=== PATIENT | male | born 1985 | race Caucasian/White ===

== ENCOUNTER 2020-11-24 09:20 | Inpatient (IN) | payer OTHER ==
[2020-11-24 10:28] VITALS: BMI 18.9
[2020-11-24] MEDS ORDERED: ACETAMINOPHEN 325 MG TABLET (FP) PO PRN ×2 (10:34)
[2020-11-24] MEDS ORDERED: BISMUTH SUBSALICYLATE 524 MG/30 ML PO PRN (10:34)
[2020-11-24] MEDS ORDERED: NICOTINE 10 MG CARTRIDGE (INHALER) IH PRN (10:34)
[2020-11-24] MEDS ORDERED: METHOCARBAMOL 500 MG TABLET PO PRN (10:34)
[2020-11-24] MEDS ORDERED: MAGNESIUM HYDROX 2400MG/30ML ORAL SUSPENSION 30 ML CUP PO PRN (10:34)
[2020-11-24] MEDS ORDERED: IBUPROFEN 400 MG TABLET (FP) PO PRN (10:34)
[2020-11-24] MEDS ORDERED: MAGNESIUM CITRATE 300 ML BOTTLE PO PRN (10:34)
[2020-11-24] MEDS ORDERED: MENTHOL/PHENOL 1 EACH UD MM PRN (10:34)
[2020-11-24] MEDS ORDERED: ONDANSETRON *ODT* 4 MG TABLET SL PRN (10:34)
[2020-11-24] MEDS ORDERED: MAG HYDROX/AL HYDROX/SIMETH 30 ML UNIT-DOSE CUP PO PRN (10:34)
[2020-11-24] MEDS ORDERED: diazePAM 5 MG TABLET ONE (10:54)
[2020-11-24] MEDS: diazePAM 5 MG TABLET PO SCH ×3 (11:01→22:25)
[2020-11-24] MEDS: hydrOXYzine PAMOATE 25 MG CAPSULE (FP) PO SCH ×3 (14:32→22:26)
[2020-11-24] MEDS: diazePAM 5 MG TABLET PO PRN ×2 (14:34→18:03)
[2020-11-24] MEDS: MICONAZOLE NITRATE 28 GM TUBE TP SCH ×2 (15:29→22:29)
[2020-11-24] MEDS: THIAMINE HCL 100 MG TABLET (FP) PO SCH (22:25)
[2020-11-24] MEDS: MELATONIN 5 MG TABLETS PO SCH (22:26)
[2020-11-25] MEDS: hydrOXYzine PAMOATE 25 MG CAPSULE (FP) PO SCH ×5 (06:01→22:43)
[2020-11-25] MEDS: diazePAM 5 MG TABLET PO SCH ×4 (06:01→22:43)
[2020-11-25] MEDS: PRENATAL VITAMINS W/ FOLIC ACID TABLET (FP) PO SCH (10:24)
[2020-11-25] MEDS: MICONAZOLE NITRATE 28 GM TUBE TP SCH ×2 (10:24→22:42)
[2020-11-25] MEDS: MELATONIN 5 MG TABLETS PO SCH (22:42)
[2020-11-25] MEDS: THIAMINE HCL 100 MG TABLET (FP) PO SCH (22:43)
[2020-11-26] MEDS: hydrOXYzine PAMOATE 25 MG CAPSULE (FP) PO SCH ×5 (06:16→22:46)
[2020-11-26] MEDS: diazePAM 5 MG TABLET PO SCH ×3 (06:16→22:45)
[2020-11-26] MEDS: MICONAZOLE NITRATE 28 GM TUBE TP SCH ×2 (10:33→22:46)
[2020-11-26] MEDS: PRENATAL VITAMINS W/ FOLIC ACID TABLET (FP) PO SCH (10:35)
[2020-11-26] MEDS: diazePAM 5 MG TABLET PO PRN ×2 (10:38→18:59)
[2020-11-26 12:44] LABS: CALCIUM 9.1 mg/dL (8.5-10.1)
[2020-11-26 12:45] LABS: ALBUMIN 3.7 g/dl (3.4-5.0); BLOOD UREA NITROGEN 8.3 mg/dL (7-18)
[2020-11-26 12:48] LABS: CREATININE 0.8 mg/dL (0.55-1.3)
[2020-11-26 12:50] LABS: TOT PROT 7.5 g/dl (6.4-8.2)
[2020-11-26 12:51] LABS: BASO % 0.9 % (0-2.0); EOS % 1.7 % (0-4.5); HEMATOCRIT 41.2 % (35.4-49); HEMOGLOBIN 14.2 GM/dL (11.7-16.9); LYMPH % 12.9 % (8-40); MCH 34.4 pg (25.7-33.7); MCHC 34.6 g/dl (32.0-35.9); MEAN CELL VOLUME 99.6 fl (80-96); MEAN PLT VOLUME 9.9 fl (7.5-11.1); MONO % 12.3 % (3.8-10.2); NEUT % 72.2 % (42.8-82.8); PLATELET COUNT 138 10^3/uL (134-434); RBC 4.13 M/mm3 (4.00-5.60); RDW 12.7 % (11.9-15.9); WHITE BLOOD COUNT 6.7 K/mm3 (4.0-10.0)
[2020-11-26 22:26] LABS: HIV INTERPRETATION NEGATIVE (NEGATIVE)
[2020-11-26] MEDS: THIAMINE HCL 100 MG TABLET (FP) PO SCH (22:45)
[2020-11-26] MEDS: MELATONIN 5 MG TABLETS PO SCH (22:46)
[2020-11-27] MEDS: hydrOXYzine PAMOATE 25 MG CAPSULE (FP) PO SCH ×5 (05:38→22:51)
[2020-11-27] MEDS: diazePAM 5 MG TABLET PO SCH ×2 (05:38→17:59)
[2020-11-27] MEDS: PRENATAL VITAMINS W/ FOLIC ACID TABLET (FP) PO SCH (10:16)
[2020-11-27] MEDS: diazePAM 5 MG TABLET PO PRN (10:18)
[2020-11-27] MEDS: MICONAZOLE NITRATE 28 GM TUBE TP SCH ×2 (10:19→22:50)
[2020-11-27] MEDS: MELATONIN 5 MG TABLETS PO SCH (22:50)
[2020-11-27] MEDS: THIAMINE HCL 100 MG TABLET (FP) PO SCH (22:51)
[2020-11-28] MEDS: hydrOXYzine PAMOATE 25 MG CAPSULE (FP) PO SCH ×2 (05:48→10:53)
[2020-11-28] MEDS ORDERED: diazePAM 5 MG TABLET PO ONE (06:00)
[2020-11-28 09:24] VITALS: BP 124/80; PULSE 90; TEMP 96.9
[2020-11-28] MEDS: MICONAZOLE NITRATE 28 GM TUBE TP SCH (10:46)
[2020-11-28] MEDS: PRENATAL VITAMINS W/ FOLIC ACID TABLET (FP) PO SCH (10:53)
== END 2020-11-28 09:57 | disposition home or self-care (01) | DRG 775 ==
LOC: YASAS 09:20 → Y6N 10:58
PROVIDERS: ADMIT Allergy & Immunology; ATTEND Allergy & Immunology
PROC: HZ2ZZZZ Detoxification Services for Substance Abuse Treatment (ICD-10-PCS; principal; 2020-11-24)
DX: F10.230 Alcohol dependence with withdrawal, uncomplicated (principal); F12.10 Cannabis abuse, uncomplicated; F17.213 Nicotine dependence, cigarettes, with withdrawal; B35.3 Tinea pedis; R74.01 Elevation of levels of liver transaminase levels
CPT/HCPCS: 36415; 80053; 85025; 86780; 86803; 87389; C9803; U0003; U0005